=== PATIENT | female | born 1975 | race Caucasian/White ===

== ENCOUNTER → 2021-01-06 | Outpatient (CLI) | payer OTHER ==
[~2021-01-06] MED LIST: ALBUTEROL2.5 MG/31 INH; AUGMENTIN 875875 MG PO; BENTYL 20 MG TA20 M1 PO; CIPROFLOXACIN500 M1 OR; FLAGYL500 MG OR; METOPROLOL SUCC25 M1; PHENERGAN 25 MG25 M1 PO; PREDNISONE50 MG PO; PROAIR HFA8.5 GM IH; RANITIDINE HCL300 M1 PO; VENTOLIN HFA 1818 GM; ZYRTEC10 M2
== END ==
LOC: M.RAD 17:25
PROVIDERS: ATTEND Specialist
DX: Z12.31 Encounter for screening mammogram for malignant neoplasm of breast (principal)